=== PATIENT | male | born 1980 ===

== ENCOUNTER 2023-04-20 18:21 | Emergency (ER) | payer BC, SELFPAY ==
--- NOTE | 2023-04-20 18:26 | ED_ITS ---
HPI - General Adult General Chief complaint: Animal Bite Stated complaint: Here for Rabies shot Time Seen by Provider: 04/20/23 18:26 Source: patient and family (patient's ) Mode of arrival: ambulatory Limitations: no limitations History of Present Illness HPI narrative: Patient is a 42 year old assigned male at with no reported medical history presenting to the emergency department today for additional rabies vaccinations. Patient states that on 03/30/2023 he was in [place] when he was bit by a dog. Patient states that he got his first 2 rabies vaccinations while in [place] and needs to finish his series of vaccinations. Patient denies any dizziness, lightheadedness, abdominal pain, nausea, vomiting, fever, chills, blurry vision, double vision, loss of vision, chest pain, difficulty breathing, shortness of breath, back pain, night sweats, pain with urination, increased urinary frequency, increased urinary urgency, blood in his urine or stool, syncope or a near syncopal episode, bowel incontinence, bladder incontinence, bowel retention, bladder retention, or any other complaints at this time. Relieving factors: none Exacerbating factors: none Associated symptoms: denies other symptoms Treatments prior to arrival: none Related Data Allergies Allergy/AdvReac Type Severity Reaction Status Date / Time No Known Allergies Allergy Verified 04/20/23 18:24 Review of Systems Constitutional: Constitutional: Reports no additional constitutional complaints, Denies chills, Denies fever(s) and Denies night sweats Eyes: Eyes: Reports no additional eye complaints, Denies blurry vision, Denies change in vision, Denies diplopia, Denies eye discharge, Denies loss of vision and Denies eye pain ENT: Denies dizziness Cardiovascular: Cardiovascular: Reports no additional cardiovascular complaints, Denies chest pain, Denies lightheadedness, Denies Loss of Consciousness and Denies dyspnea Respiratory: Respiratory: Reports no additional respiratory complaints and Denies dyspnea Gastrointestinal: Gastrointestinal: Reports no additional gastrointestinal complaints, Denies abdominal pain, Denies melena, Denies hematochezia, Denies change in bowel habits and Denies change in stool character Genitourinary: Genitourinary: Reports no additional male genitourinary complaints, Denies hematuria, Denies oliguria, Denies difficulty urinating, Denies dysuria, Denies urinary frequency, Denies urinary hesitancy, Denies urinary incontinence and Denies urinary urgency Musculoskeletal: Musculoskeletal: Reports no additional musculoskeletal complaints, Denies numbness and Denies tingling Neurologic: Denies dizziness, Denies loss of vision, Denies numbness and Denies tingling Psychiatric: Psychiatric: Reports no additional psychiatric complaints Endocrine: Endocrine: Reports no additional endocrine complaints Hematologic/Lymphatic: Hematologic/Lymphatic: Reports no additional hematologic/lymphatic complaints Allergic/Immunologic: Allergic/Immunologic: Reports no additional allergic/immunologic complaints PMFSH Past Medical History Attestation statement: The following information was validated with the patient. (patient's validated all information) Source: old records reviewed, obtained from family (patient's provided additional history and confirmed the history provided by the patient.) and nursing notes reviewed Social History Social History Advance Directives: No Advance Directives Information Provided: No Physical Exam ED Vital Signs: Vital Signs - 24 hr 04/20/23 18:42 Temperature 98.8 F Pulse Rate 76 Respiratory Rate 16 Blood Pressure 116/88 Pulse Oximetry 97 Oxygen Delivery Method Room Air BMI result Body Mass Index 25.5 Const General: cooperative, no acute distress, alert and awake Nutritional Appearance: well nourished Orientation/consciousness: patient oriented x3 Limitations: no limitations HENMT Head: Yes normal to inspection and Yes atraumatic Ears: hearing grossly normal bilaterally and external ears normal General nose exam: Normal external nose present, no nasal discharge noted and no epistaxis Face and sinus: Yes normal facial exam, No abrasion and No laceration Mouth: Normal oral and palatal mucosa present, no drooling and no muffled voice Eyes General: appearance normal, both eyes and all related structures Periorbital: periorbital findings normal Eyelids: Yes eyelids normal Conjunctivae: conjunctivae normal Pupils: Equal, round and reactive pupils present EOM: EOMs intact bilaterally Neck Neck: Yes normal visual inspection, Yes full ROM and Yes no lymphadenopathy Chest Chest palpation & inspection: normal inspection of the chest Resp Effort & Inspection: normal respiratory effort and able to speak in complete sentences GI Inspection: Yes normal to inspection Neuro General: patient oriented x3 and moves all extremities Cranial nerves: Yes Equal, round and reactive pupils present Cognition (Neuro): normal cognition Motor exam (neuro): 5/5 motor strength present throughout Sensory Exam: Normal double simultaneous stimulation for sensation Coordination: [id number] test normal Extrem General: Yes normal to inspection, Yes full ROM and Yes capillary refill normal Psych Appearance: grossly normal Mental Status: mental status grossly normal Affect: normal affect Attitude: cooperative Thought process: Normal thought process present Thought content: Normal thought content present Insight: Good insight present (Psych) Medications Administered Discontinued Medications Generic Name Dose Route Start Last Admin Trade Name Tim PRN Reason Stop Dose Admin Lorazepam 1 mg 04/20/23 20:17 04/20/23 20:32 Lorazepam 1 Mg Tablet PO 04/20/23 20:18 1 mg ONCE ONE Administration Rabies Vaccine Human Diploid Cell 1 ml 04/20/23 18:24 04/20/23 20:20 Rabies Vaccine, Human Diploid (Imovax) 1 Ml Vial IM 04/20/23 18:25 1 ml .ONCE ONE Administration Medical Decision Making Medical Decision Making MDM Narrative: Patient is a 42 year old assigned male at with no reported medical history presenting to the emergency department today for additional rabies shots. Patient's physical exam was unremarkable. I spoke at length with the pharmacy staff who agreed that the patient should have his vaccination series started over here. I explained my physical exam findings to the patient and the patient's . I answered all questions asked by the patient and the patient's . Patient was given his 1st rabies vaccination dose here with instructions on how to complete the series. I stressed the importance of the patient taking his medication as prescribed. I stressed the importance of the patient following up with his primary care provider. I stressed the importance of the patient returning to the emergency department immediately if his symptoms were to worsen or if he were to develop any dizziness, shortness of breath, difficulty breathing, chest pain, blurry vision, loss of vision, nausea, vomiting, abdominal pain, fever, chills, back pain, or any other complaints. Patient and the patient's verbalized agreement and understanding with this treatment plan and discharge. Differential Diagnosis Differential Diagnoses: The differential diagnosis associated with the presentation includes Animal bite Dog bite Rabies vaccination Independent Historian Clinical information obtained from an independent historian. History obtained from or confirmed by: Spouse (patient's provided additional history and confirmed the history provided by the patient.) Discharge Plan Discharge Clinical Impression: Bite by animal, Rabies contact Patient Disposition: Home, Self-Care Instructions: Rabies Vaccine (By injection), Animal Bite (ED), Rabies (ED) Additional Instructions: Follow up with your primary care provider. Return to the emergency department immediately if your symptoms worsen or if you develop any dizziness, shortness of breath, difficulty breathing, chest pain, blurry vision, loss of vision, nausea, vomiting, abdominal pain, fever, chills, back pain, or any other complaints. Call Medical Day Stay tomorrow at [phone] to schedule an appointment to receive the remainder of your required Rabies Vaccines. You will need a total of 3 more injections. Bring the Rabies Vaccine Order Set sheet and your Rabies Vaccination Record with you to these appointments. If the day you are supposed to come back for the rabies vaccine falls on a weekend or a holiday, proceed to the Emergency Department to receive the required vaccination. Follow up with your primary care provider after completion of the vaccine to have a titer drawn to ensure the vaccines effectiveness. Referrals: Bismark Norton MD [Primary Care Provider] - Print Language: Swedish
[2023-04-20 18:42] VITALS: BP 116/88; PULSE 76; RESP 16; TEMP 37.1; O2SAT 97; BMI 25.5
[2023-04-20] MEDS: Rabies Vaccine, Human Diploid (Imovax) 1 ML VIAL IM (20:20)
[2023-04-20] MEDS: LORazepam 1 MG TABLET PO (20:32)
--- NOTE | 2023-04-20 20:56 | PC.NURSE ---
per pt initial dog bite occurred in [facility] on 03/30/2023 - received initial rabies vaccine and immune globulin on 03/30/2023 (Day 0), and a repeat vaccine on 04/09/2023 (Day 10) while in [facility] w instruction to present for repeat vaccine on arrival back in the . after speaking w pharmacy staff and Dr Gtz and ALEN Estes, pt agreeable to restart vaccine series due to late 2nd vaccine on both the [place] (Day 0, Day 3, Day 7, Day 14) and [facility] vaccine protocols (Day 0, Day 7, Day 14). pt initially reluctant to restart vaccine series due to needle phobia. rabies vaccine administered in R deltoid, pt tolerated well. pt declined pre vaccine ativan, but took medication post vaccination. rabies vaccine order set faxed to short stay and pharmacy, pt discharged with follow up instructions emphasizing the importance of date adherence for vaccines, copy of order set and VIS.
== END 2023-04-20 21:09 | disposition home or self-care (01) ==
PROVIDERS: Emergency Provider Student in an Organized Health Care Education/Training Program; PCP Internal Medicine
DX: T14.8XXD Other injury of unspecified body region, subsequent encounter (principal); W54.0XXD Bitten by dog, subsequent encounter; F40.231 Fear of injections and transfusions; Z20.3 Contact with and (suspected) exposure to rabies
CPT/HCPCS: 90471; 90675; 99282; 99284

== ENCOUNTER 2023-04-23 07:57 | Outpatient (REF) | payer BC, SELFPAY | END 2023-04-23 07:58 | disposition home or self-care (01) | LOC: HO.MDS 07:57 | PROVIDERS: PCP Internal Medicine; Visit Provider Physician Assistant Medical | DX: Z20.3 Contact with and (suspected) exposure to rabies (principal); T14.8XXD Other injury of unspecified body region, subsequent encounter; W54.0XXD Bitten by dog, subsequent encounter | CPT/HCPCS: 90471; 90675 ==

== ENCOUNTER 2023-04-27 14:43 | Outpatient (REF) | payer BC, SELFPAY | END 2023-04-27 14:44 | disposition home or self-care (01) | LOC: HO.MDS 14:43 | PROVIDERS: Visit Provider Physician Assistant Medical | DX: Z20.3 Contact with and (suspected) exposure to rabies (principal); T14.8XXD Other injury of unspecified body region, subsequent encounter; W54.0XXD Bitten by dog, subsequent encounter | CPT/HCPCS: 90471; 90675 ==

== ENCOUNTER 2023-05-04 11:06 | Outpatient (REF) | payer BC, SELFPAY | END 2023-05-04 11:07 | disposition home or self-care (01) | LOC: HO.MDS 11:06 | PROVIDERS: PCP Internal Medicine; Visit Provider Physician Assistant Medical | DX: Z20.3 Contact with and (suspected) exposure to rabies (principal); T14.8XXD Other injury of unspecified body region, subsequent encounter; W54.0XXD Bitten by dog, subsequent encounter | CPT/HCPCS: 90471; 90675 ==

== ENCOUNTER 2025-05-01 13:16 | Outpatient (REF) | payer BC, SELFPAY | END 2025-05-01 13:17 | disposition home or self-care (01) | LOC: HO.LNP 13:16 | PROVIDERS: PCP Internal Medicine; Visit Provider Internal Medicine | DX: K21.9 Gastro-esophageal reflux disease without esophagitis (principal); K52.9 Noninfective gastroenteritis and colitis, unspecified; Z80.0 Family history of malignant neoplasm of digestive organs; Z79.899 Other long term (current) drug therapy; R10.13 Epigastric pain | CPT/HCPCS: 83013 ==

== ENCOUNTER 2025-05-01 13:16 | Outpatient (AMB) | payer BC, SELFPAY ==
--- NOTE | 2025-05-01 13:21 | MHC.OFFVIS ---
Vital Signs 05/01/25 13:22 Height 5 ft 8 in Weight 160 lb 14.999 oz BMI 24.5 BP 114/84 Blood Pressure Location Lt brachial Position Sitting Pulse 66 Intake Visit Reasons: Dyspesia Intake Note: Gerry presents in the office as a new patient for Dyspepsia. CC: stomach pains - diagnosed with reflux but he has pain and discomfort and questions if it is due to reflux. Sensitive to certain foods when he eats he notices the symptoms. Diarrhea often - never constation. Information Systems Coordinator Required: No Allergies No Known Allergies Allergy (Verified 05/01/25 13:27) HPI Comments Details: The patient is a 44-year-old male presenting for evaluation of GI sx as below. He reports a history of these issues for over 10 years, characterized by sharp abdominal pain localized to the left side and often accompanied by diarrhea. Symptoms typically manifest the morning after eating certain foods, and the pain is relieved by defecation, which may occur two to three times per day. Each episode occurs at least 1-2 times per month. The patient also experiences belching and nausea but denies regurgitation of solid food. Identified triggers include spicy foods, tomatoes, citric acid, dairy. The patient follows a mostly vegetarian diet and rarely consumes alcohol due to symptom exacerbation. The patient has been self-treating with [id number] lansoprazole 30 mg in the morning and famotidine 40 mg at night. Past medical history includes a previous diagnosis of acid reflux and a barium swallow test a long time ago that showed inflammation of the lower duodenum. The patient has never had an endoscopy. Family history is significant for a father with pancreatic cancer, which was diagnosed in his mid-60s. There is no family history of stomach or colon cancer. The patient has no history of abdominal surgeries or kidney stones. --- Pt was informed and consented to the use of ambient scribe for this encounter. --- [facility] Family History (Updated 05/01/25 @ 13:29 by ELSA Freeman) Maternal Grandmother Breast cancer Father Pancreatic cancer Skin cancer Paternal Uncle Skin cancer Review of Systems Const All systems reviewed & are unremarkable except as noted in HPI and below Physical Exam Exam Exam: No apparent distress Nonicteric Abdomen soft, nondistended Alert and oriented x3, normal gait Vital Signs: Last Vital Signs Pulse 66 05/01/25 13:22 BP 114/84 05/01/25 13:22 BMI result Body Mass Index 24.5 Assessment & Plan Assessment & Plan (1) GERD (gastroesophageal reflux disease): Code(s): K21.9 - Gastro-esophageal reflux disease without esophagitis Category: Medical (2) Chronic diarrhea: Code(s): K52.9 - Noninfective gastroenteritis and colitis, unspecified Category: Medical (3) Family history of pancreatic cancer: Code(s): Z80.0 - Family history of malignant neoplasm of digestive organs Category: Medical (4) Left sided abdominal pain: Code(s): R10.9 - Unspecified abdominal pain Category: Medical Plan 1. Gastroesophageal reflux disease Sx of abd pain with nausea and belching are suggestive of reflux disease. Other ddx include gastritis/duodenitis, H Pylori, PUD. Plan: - Take PPI at least 30-45 mins before meals and increase to BID. - OK to DC famotidine if doubling up PPI - Barium swallow - Schedule an upper endoscopy (EGD) - In-office H. pylori breath test today. - Handout given on dietary triggers for GERD. 2. Abd pain and diarrhea Ddx include IBD, IBS, microscopic colitis, food intolerance, MCAS. Plan: - Labs as below - If fecal calpro +, may need a colo as well. 3. Family history of pancreatic cancer Due to the patient's father being diagnosed with pancreatic cancer in his mid-60s, a one-time screening is warranted to rule out any pancreatic abnormalities. Orders: Orders FL barium swallow Today K21.9 - Gastro-esophageal reflux disease without esophagitis Transglutaminase IgA Today K21.9 - Gastro-esophageal reflux disease without esophagitis TSH reflex Free T4 Today K21.9 - Gastro-esophageal reflux disease without esophagitis C Reactive Protein Today K52.9 - Noninfective gastroenteritis and colitis, unspecified Calprotectin, Fecal Today K52.9 - Noninfective gastroenteritis and colitis, unspecified H Pylori Breath Test Today K21.9 - Gastro-esophageal reflux disease without esophagitis MR abdomen wo/w con Today Z80.0 - Family history of malignant neoplasm of digestive organs Complete Blood Count no Diff Today K21.9 - Gastro-esophageal reflux disease without esophagitis Immunoglobulin A Today K21.9 - Gastro-esophageal reflux disease without esophagitis Referrals GI Procedure Notification K21.9 - Gastro-esophageal reflux disease without esophagitis Patient Instructions: - If you take lansoprazole, wait at least 30-45 minutes after taking it on an empty stomach before you eat or drink. - An H. pylori breath test will be done in the office today. - Blood work and stool tests have been ordered for evaluation. - An upper endoscopy (a camera test for your stomach) will be scheduled. - Do not eat or drink for 8 hours before the procedure. - You must have a responsible adult drive you home after the endoscopy. - A barium swallow X-ray will also be scheduled. - A one-time MRI of your pancreas will be ordered as a screening test due to your family history. - You have been given a handout listing foods to avoid that may trigger your symptoms, such as caffeine, tomatoes, chocolate, and peppermint. - A follow-up appointment will be scheduled for you. Coding Level of Care Code New Pt Level 5 (68010) Diagnoses GERD (gastroesophageal reflux disease) K21.9 Chronic diarrhea K52.9 Family history of pancreatic cancer Z80.0 Left sided abdominal pain R10.9
[2025-05-01 13:22] VITALS: BP 114/84; PULSE 66; BMI 24.5
== END 2025-05-01 14:02 | disposition home or self-care (01) ==
LOC: HO.HGI 13:16
PROVIDERS: PCP Internal Medicine; Visit Provider Internal Medicine
DX: K21.9 Gastro-esophageal reflux disease without esophagitis (principal); K52.9 Noninfective gastroenteritis and colitis, unspecified; Z80.0 Family history of malignant neoplasm of digestive organs; R10.9 Unspecified abdominal pain
CPT/HCPCS: 99204